=== PATIENT | male | born 1980 | race Caucasian/White ===

== ENCOUNTER 2017-08-18 19:37 | Inpatient (IN) | payer SELFPAY ==
[2017-08-18 19:50] LABS: POC GLUCOSE 101 mg/dL (70-99)
[2017-08-18 19:53] LABS: ADD MAN DIFF? NO
[2017-08-18 19:57] LABS: BASO # 0.1 x10^3/uL (0.0-0.2); BASO % 1 % (0-3); EOS % 0 % (0-3); HEMATOCRIT 41.3 % (39.0-53.0); HEMOGLOBIN 14.3 g/dL (13.0-17.5); LYMPH # 1.9 x10^3/uL (1.0-4.8); LYMPH % 22 % (24-48); MEAN CORPUSCULAR HEMOGLOBIN 31 pg (25-35); MEAN CORPUSCULAR HGB CONC 35 g/dL (31-37); MEAN CORPUSCULAR VOLUME 88 fL (79-100); MONO # 0.9 x10^3/uL (0.0-1.1); MONO % 10 % (0-9); NEUT % 68 % (31-73); PLATELET COUNT 239 x10^3/uL (140-400); RED BLOOD COUNT 4.69 x10^6/uL (4.30-5.70); RED CELL DISTRIBUTION WIDTH 13.1 % (11.5-14.5); WHITE BLOOD COUNT 8.9 x10^3/uL (4.0-11.0)
[2017-08-18 20:06] LABS: AMMONIA < 10 mcmol/L (11-34)
[2017-08-18 20:06] LABS: ANION GAP 9 (6-14); BLOOD UREA NITROGEN 19 mg/dL (8-26); CALCIUM 9.3 mg/dL (8.5-10.1); CARBON DIOXIDE 29 mmol/L (21-32); CHLORIDE 101 mmol/L (98-107); GFR 66.6; GLUCOSE 115 mg/dL (70-99); POTASSIUM 3.4 mmol/L (3.5-5.1); SODIUM 139 mmol/L (136-145)
[2017-08-18 20:08] LABS: INR 1.1 (0.8-1.1); PARTIAL THROMBOPLASTIN TIME 26 SEC (24-38); PROTHROMBIN TIME PATIENT 13.3 SEC (11.7-14.0)
[2017-08-18 20:13] LABS: TROPONINI < 0.017 ng/mL (0.000-0.055)
[2017-08-18 20:13] LABS: ALBUMIN 3.8 g/dL (3.4-5.0); ALK PHOS 72 U/L (46-116); ALT (SGPT) 30 U/L (16-63); AST (SGOT) 25 U/L (15-37); DIRECT BILIRUBIN 0.1 mg/dL (0.0-0.2); TOTAL BILIRUBIN 0.6 mg/dL (0.2-1.0); TOTAL PROTEIN 7.5 g/dL (6.4-8.2)
[2017-08-18 20:16] LABS: ACETAMIN < 2 mcg/ml (10-30); ETHANOL < 10 mg/dL (0-10); SALIC 3.7 mg/dL (2.8-20.0)
[2017-08-18 20:19] LABS: CKMB INDEX 1.3 % (0-4); CKMB MASS 3.5 ng/mL (0.0-3.6); CREATINE KINASE 273 U/L (39-308)
[2017-08-18 20:19] LABS: NT-PRO BNP 42 pg/mL (0-449)
[2017-08-18 21:10] LABS: BILIRUBIN,URINE SMALL (NEG); CLARITY,URINE CLEAR; COLOR,URINE YELLOW; GLUCOSE,URINE NEGATIVE (NEG); NITRITE,URINE NEGATIVE (NEG); PROTEIN,URINE 30 mg/dL (NEG-TRACE); UROBILINOGEN,URINE 0.2 mg/dL (0.2 mg/dL)
[2017-08-18 21:13] LABS: BARBITURATES NEG (NEG); BENZODIAZEPINES NEG (NEG); CANNABINOIDS POS (NEG); COCAINE NEG (NEG); METHADONE NEG (NEG); OPIATES NEG (NEG); PHENCYCLIDINE NEG (NEG)
[2017-08-18 21:16] LABS: AMPHETAMINE/METHAMPHETAMINE POS (NEG); ETHANOL, URINE NEG (NEG)
[2017-08-18 21:23] LABS: BACTERIA,URINE 0 /HPF (0-FEW); HYALINE CASTS, URINE MODERATE /HPF; SQUAMOUS EPITHELIAL CELL,UR FEW /LPF
[2017-08-18] MEDS: IV NORMAL SALINE 1000ML BAG 1,000 ML IV ×3 (21:26→22:42)
[2017-08-18] MEDS: IV DEXTROSE 5 %-0.45 % NACL 1,000 ML IV (21:30)
[2017-08-18] MEDS ORDERED: HALOPERIDOL LACTATE 5 MG/ML VIAL. IVP ×3 (22:30→23:30)
[2017-08-18] MEDS: HALOPERIDOL LACTATE 5 MG/ML VIAL. IVP (22:39)
[2017-08-19 02:09] LABS: TROPONINI < 0.017 ng/mL (0.000-0.055)
[2017-08-19 03:53] LABS: ADD MAN DIFF? NO
[2017-08-19 04:02] LABS: BASO # 0.1 x10^3/uL (0.0-0.2); BASO % 1 % (0-3); EOS # 0.1 x10^3/uL (0.0-0.7); EOS % 1 % (0-3); HEMATOCRIT 39.5 % (39.0-53.0); HEMOGLOBIN 13.4 g/dL (13.0-17.5); LYMPH # 1.5 x10^3/uL (1.0-4.8); LYMPH % 25 % (24-48); MEAN CORPUSCULAR HEMOGLOBIN 30 pg (25-35); MEAN CORPUSCULAR HGB CONC 34 g/dL (31-37); MEAN CORPUSCULAR VOLUME 89 fL (79-100); MONO # 0.6 x10^3/uL (0.0-1.1); MONO % 10 % (0-9); NEUT # 3.8 x10^3uL (1.8-7.7); NEUT % 62 % (31-73); PLATELET COUNT 193 x10^3/uL (140-400); RED BLOOD COUNT 4.45 x10^6/uL (4.30-5.70); RED CELL DISTRIBUTION WIDTH 13.1 % (11.5-14.5); WHITE BLOOD COUNT 6.2 x10^3/uL (4.0-11.0)
[2017-08-19 04:21] LABS: ANION GAP 7 (6-14); BLOOD UREA NITROGEN 14 mg/dL (8-26); CALCIUM 8.4 mg/dL (8.5-10.1); CARBON DIOXIDE 28 mmol/L (21-32); CHLORIDE 108 mmol/L (98-107); CREATININE 0.8 mg/dL (0.7-1.3); GFR 86.1; GLUCOSE 93 mg/dL (70-99); POTASSIUM 3.2 mmol/L (3.5-5.1); SODIUM 143 mmol/L (136-145)
[2017-08-19 04:35] LABS: TROPONINI < 0.017 ng/mL (0.000-0.055)
[2017-08-19 06:33] LABS: PCO2 ABG 38 mmHg (35-46); PH ABG 7.45 (7.35-7.45)
[2017-08-19 06:34] LABS: BASE EXCESS ABG 2 mmol/L (-3-3); FIO2 ABG 21; HCO3 ABG 26 mmol/L (21-28); PO2 ABG 45 mmHg (65-108); SAT O2 ABG 85 % (92-99)
[2017-08-19 06:38] LABS: PCO2 ABG 36 mmHg (35-46); PH ABG 7.47 (7.35-7.45)
[2017-08-19 06:39] LABS: BASE EXCESS ABG 2 mmol/L (-3-3); FIO2 ABG 28; HCO3 ABG 26 mmol/L (21-28); PO2 ABG 117 mmHg (65-108); SAT O2 ABG 98 % (92-99)
[2017-08-19] MEDS: IV NORMAL SALINE 1000ML BAG 1,000 ML IV (11:35)
[2017-08-19 18:18] LABS: MRSA BY PCR Positive (Negative)
== END 2017-08-19 11:30 | disposition left against medical advice (07) | DRG 897 ==
LOC: ER 19:37 → 1 WEST ICU 20:34
DX: F15.10 Other stimulant abuse, uncomplicated (principal); R41.82 Altered mental status, unspecified; Y92.481 Parking lot as the place of occurrence of the external cause; T43.625A Adverse effect of amphetamines, initial encounter
CPT/HCPCS: 36415; 51702; 70450; 71045; 72125; 80048; 80076; 80307; 80329; 81001; 82140; 82553; 82805; 82962; 83605; 83735; 83880; 84484; 85025; 85610; 85730; 87040; 87641; 93005; 99291-25; G0480; J1630; J2060; J7030